=== PATIENT | female | born 1965 ===

== ENCOUNTER 2017-12-30 13:21 | Outpatient (CLI) | payer OTHER | END 2017-12-30 13:29 | disposition home or self-care (01) | LOC: LAB 13:21 | DX: J45.30 Mild persistent asthma, uncomplicated (principal); R06.02 Shortness of breath; R05 Cough ==

== ENCOUNTER 2017-12-30 13:25 | Outpatient (CLI) | payer OTHER | END 2017-12-30 13:56 | disposition home or self-care (01) | LOC: SONOGRAMA 13:25 | DX: E03.8 Other specified hypothyroidism (principal); E04.8 Other specified nontoxic goiter ==